=== PATIENT | female | born 1935 | race African-American/Black ===

== ENCOUNTER 2016-11-26 21:08 | Emergency (ER) | payer MEDICARE, MEDICAID ==
--- NOTE | 2016-11-26 21:27 | EDPRACDOC ---
- General Information Stated Complaint: RESP/DIFF Time Seen by Provider: 11/26/16 21:20 Information Source: Patient Mode Of Arrival: Ambulance Home Medications: Home Medications Atorvastatin Calcium [Lipitor] 20 mg PO HS 05/20/13 Fluticasone/Salmeterol [Advair 250-50 Diskus] 1 each IH BID 05/20/13 Levothyroxine [Synthroid, Levoxyl] 100 mcg PO DAILY 05/20/13 Lisinopril [Zestril] 2.5 mg PO DAILY 05/20/13 Tiotropium [place] [Spiriva] 18 mcg IH DAILY 05/20/13 Metoprolol Succinate [Toprol Xl] 50 mg PO DAILY 09/13/13 Warfarin Sodium 4 mg PO DAILY 03/14/14 Allergies/Adverse Reactions: Allergies Allergy/AdvReac Type Severity Reaction Status Date / Time codeine Allergy Rash-Genera Verified 03/14/14 22:17 lized Penicillins Allergy Rash-Genera Verified 03/14/14 22:17 lized - History of Present Illness HPI: PT PRESENTS VIA EMS WITH SOB, FOLLOWING A STRESSFUL SITUATION WITH FAMILY. PT WAS FEELING VERY ANXIOUS. ENTIRE EPISODE LASTED ABOUT 30 MIN. PT NOT INVOLVED. SOB RESOLVED IN ED. ON 2L NC AT HOME. H/O AFIB. SOME SHORT SHARP EPISODES OF CHEST PAIN. NO CP CURRENTLY. ED Past Medical History - Patient Medical History Cardiac History: Reports: Atrial Fibrillation, Hypertension, Congestive Heart Failure, Hypercholesterolemia Respiratory History: Reports: COPD, Emphysema EDM Review of Systems - Review of Systems ROS Negative Except as Marked: Yes All systems reviewed and were negative except as marked - Physical Exam Constitutional: Alert (Awake), No apparent distress Oriented to: Time, Person, Place Last recorded Vital Signs: Oxygen Pulse Oxygen Saturation O2 Device Oxygen Flow Rate Fraction of Inspired Oxygen ( FIO2) - HEENT Head: Normal ( normocephalic) Eye Exam: Normal (PERRL, EOMI, Sclera white) Oropharynx: Normal (Pharynx:Moist without exudate,Gums-no swelling) Nose: No Symptoms Reported (septum midline) Neck: Normal (FROM, trachea at midline) - Respiratory/Cardiovascular Respiratory: Diminished Cardiovascular: Irregular - GI Auscultation: Normal (NABS) Palpation: Normal (Soft,No rebound or guarding, non distended) Tenderness: Non tender Mcfarlane's Sign: Negative - Musculoskeletal Back: Normal (Non-Tender) Extremities: Normal (Normal tone, Pulses 2+ No cyanosis or edema, FROM) - Integumentary Skin: Normal, Warm, Dry Lymphatics: Normal (no adenopathy) - Neurologic Memory Impaired: Normal Motor Function: Normal (Normal tone, Pulses 2+ No cyanosis or edema, FROM) Cranial Nerve: Normal (CN II-X11 intact sensation, strength 5/5) Cerebellar: Normal Mood Description: Normal Perception: Normal ED SOB MDM - Re-evaluation Re-evaluation 1 Re-evaluation Time: 22:26 Re-evaluation: STILL FEELING WELL. NO SOB. READY FOR HOME. - EKG EKG #1 EKG Time: 21:20 -: Yes EKG interpreted by me Rate: bpm: 92 Rhythm: Afib Block: None Hypertrophy: None ST: Normal Comments: ABNORMAL EKG . Decision Time to Discharge: 22:02 - Departure Yes I personally saw and evaluated the patient. Disposition: Home Condition: Stable Final Diagnosis: Dyspnea Qualifiers: Dyspnea type: unspecified Qualified Code(s): R06.00 - Dyspnea, unspecified Instructions: Dyspnea (ED) Education/Counseling Given To: Patient Education/Counseling Given Regarding: Diagnosis Referrals: Soledad Bailey PA [Primary Care Provider] - One Week
[2016-11-26 21:35] VITALS: TEMP 98.6; BMI 28.3
--- NOTE | 2016-11-26 21:44 | DIRPT ---
CLINICAL DATA: Dyspnea EXAM: PORTABLE CHEST 1 VIEW COMPARISON: 10/28/2015 chest radiograph. FINDINGS: Stable cardiomediastinal silhouette with top-normal heart size and tortuous atherosclerotic thoracic aorta. No pneumothorax. No pleural effusion. Mild curvilinear opacities at the lung bases. No acute consolidative airspace disease. No pulmonary edema. IMPRESSION: Mild curvilinear opacities at the lung bases, favor mild scarring or atelectasis. Otherwise no active cardiopulmonary disease. Electronically Signed By: Raphael Brenner M.D. On: 11/26/2016 21:41
[2016-11-26 22:41] VITALS: BP 191/96; PULSE 104
== END 2016-11-26 22:41 | disposition home or self-care (01) ==
LOC: ED 21:08
DX: R06.00 Dyspnea, unspecified (principal)
CPT/HCPCS: 71010; 99284